=== PATIENT | male | born 1950 | race Caucasian/White ===

== ENCOUNTER 2021-10-30 06:58 | Emergency (ER) | payer OTHER ==
[~2021-10-30] VITALS: Ht 177.8 cm; Wt 79.4 kg
--- NOTE | ~2021-10-30 | EMS ---
[facility] [address] [place] [address] EMS Patient Care Report Name: DAVID CASTANO Room #: REG LUCIANO Canales#: [id number] Admission: 10/30/21 Attend Phys: Discharge: Date of : 48 Report #: [id number] THIS REPORT FOR: //name// Report Transmitted: 10/30/2021 09:11 EMS Care Summary [facility] MED-ACT Incident [id number] @ 10/30/2021 06:19 Incident [address] [place] [address] Patient DAVID CASTANO Male, 71 Years 1950 Patient Address [address] [place] [address] Patient History Hypertension (HTN),Polanco's-Palsy, Patient Allergies No known allergies, Patient Medications None Reported, Chief Complaint "My left side feels numb" Disposition Transported No Lights/Foley Dispatch Reason Stroke/CVA Transported To [facility] Narrative CC: "My left side feels numb, like its asleep" H: [id number] was dispatched to a C1 stoke at a residence. On arrival pt was laying on the bedroom floor AOx3 with ABCs intact. Pt reported he went to bed about [facility] [address] [place] [address] EMS Patient Care Report Name: DAVID CASTANO Room #: REG LUCIANO Canales#: [id number] Admission: 10/30/21 Attend Phys: Discharge: Date of : 48 Report #: [id number] 1am and was complaint free. He reported he got up to use the restroom and when he sat down he felt light headed and felt like his left arm and leg were asleep. He reported he could move everything, but he had to concentrate to do so. Pts vitals obtained and his blood pressure was high. He reported he knows it is high and has tried to take blood pressure medications in the past, but his blood pressure fluctuated too much so he stopped taking them. [place] stroke scale negative. Pts speech was slightly slurred but smile was symmetrical. 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 Pt reported both his brothers and father have had strokes and have since recovered. Pt denied headache, blurry or double vision, dizziness, nausea, vomiting, recent falls or trauma, new medications, fever, cough, shortness of breath or chest pain. Pt reported he laid on the floor because he did not want to wake up his , she recently had surgery secondary to breast cancer. Pt reported he is an active person and rides a bike daily. Pt denied stroke history. Pt assisted to his feet and he was able to walk, but reported it took much concentration. His gait was abnormal and he leaned to the left when trying to step down. Pt sat on the cot in the semi fowlers position, position of comfort. Pt reported he could feel EMS tough his left arm, leg, torso and face, however it felt "like a pressure when your arm falls asleep and you try and wake it up." Biocom to [place] without questions or orders. Pt reported he currently is not under the care of a physician. Assessment: See narrative and assessment tab for details. Treatment: bilateral blood pressures, blood glucose, stroke scale, 4 lead, 12 lead, surgical mask Transport: Pt conversed with EMS and moved his left arm and leg "trying to wake them up." vitals monitored and pt denied any new complaint. Destination: Pt transported to [facility] closest base facility and pts choice. Pt care to ED staff. Pt report to ED RN and MD. Pt moved from cot to bed via sheet drag. Pt left in ED care without incident or change. Initial Vitals @06:31P: 58,SpO2: 99,OR Suspected: false @06:52P: 73,R: 16,BP: 219/115,GCS: 15,SpO2: 99,Revised Trauma: 12, @06:46P: 62,R: 16,BP: 231/109,GCS: 15,SpO2: 99,Revised Trauma: 12, @06:29P: 57,R: 16,BP: 225/96,GCS: 15,SpO2: 97,Revised Trauma: 12, @06:29P: 58,R: 16,BP: 216/121,Pain: 0/10,GCS: 15,Temp: 98.2F,Glucose: 101,SpO2: 98,Revised Trauma: 12,OR Suspected: false Impression Stroke [facility] [address] [place] [address] EMS Patient Care Report Name: DAVID CASTANO Room #: REG LUCIANO Canales#: [id number] Admission: 10/30/21 Attend Phys: Discharge: Date of : 48 Report #: [id number] Procedures @06:44 IV Therapy - Saline Lock 10cc (18 ga) Site: Antecubital-Right Response: UnchangedFailed @06:45 Surgical Mask on Patient Response: Unchanged @06:45 IV Therapy - Saline Lock 10cc (20 ga) Site: Forearm-Right Response: UnchangedSucceeded @06:31 12-Lead ECG Response: UnchangedSucceeded Timeline 06:18,Call Received 06:18,Psap Call 06:19,Dispatched 06:21,En Route 06:25,On Scene 06:26,At Patient 06:29,BP: 216/121 M,PULSE: 58,RR: 16 R,SPO2: 98 Ox,ETCO2: ,B,PAIN: 0,GCS: 15, 06:29,BP: 225/96 M,PULSE: 57,RR: 16 R,SPO2: 97 Ox,ETCO2: ,BG: ,PAIN: ,GCS: 15, 06:31,12-Lead ECG,Response: UnchangedSucceeded, 06:31,BP: / M,PULSE: 58,RR: R,SPO2: 99 Ox,ETCO2: ,BG: ,PAIN: ,GCS: , 06:44,IV Therapy - Saline Lock 10cc 18 ga Site: Antecubital-Right,Response: UnchangedFailed, 06:45,IV Therapy - Saline Lock 10cc 20 ga Site: Forearm-Right,Response: UnchangedSucceeded, 06:45,Surgical Mask on Patient,Response: Unchanged 06:46,BP: 231/109 M,PULSE: 62,RR: 16 R,SPO2: 99 Ox,ETCO2: ,BG: ,PAIN: ,GCS: 15, 06:47,Depart Scene 06:52,BP: 219/115 M,PULSE: 73,RR: 16 R,SPO2: 99 Ox,ETCO2: ,BG: ,PAIN: ,GCS: 15, 06:56,At Destination 07:12,Call Closed Disclaimer v1.1 Copyright 2020 [employer] This EMS Care Summary contains data elements from the applicable legal record (which may be displayed differently). It is designed to provide pertinent information for the following purposes: continuity of care, clinical quality, and state data reporting. The complete legal record is available to ED staff and administrators of the receiving hospital in [facility]'s Patient Tracker. All data is provided "as is."
[2021-10-30 07:46] LABS: URINE CLARITY CLEAR; URINE COLOR YELLOW; URINE SPECIFIC GRAVITY 1.015 (1.005-1.035)
[2021-10-30 07:47] LABS: URINE BILIRUBIN NEGATIVE (Negative); URINE BLOOD NEGATIVE (Negative); URINE GLUCOSE-RANDOM* NEGATIVE (Negative); URINE KETONES NEGATIVE (Negative); URINE LEUKOCYTES-REFLEX NEGATIVE (Negative); URINE NITRITE-REFLEX NEGATIVE (Negative); URINE PROTEIN (DIPSTICK) NEGATIVE (Negative); URINE UROBILINOGEN 0.2 E.U./dl (0.2-1.0)
[2021-10-30 07:48] LABS: ABSOLUTE NEUTROPHILS 3.5 thou/uL (1.4-8.2); BASOPHILS 1.5 % (0.0-2.0); EOSINOPHILS 5.6 % (0.0-3.0); HEMATOCRIT 41.3 % (42.0-52.0); HEMOGLOBIN 13.5 gm/dL (14.0-18.0); LYMPHOCYTES 25.8 % (24.0-44.0); MCH 28.9 pg (26.0-34.0); MCHC 32.6 g/dL (28.0-37.0); MCV 88.6 fL (80.0-100.0); MONOCYTES 8.8 % (1.0-8.0); PLATELET COUNT 224 thou/uL (150-400); POLYS 58.3 % (36.0-66.0); RBC 4.66 mil/uL (4.50-6.00); RDW 12.9 % (10.5-14.5); WBC 5.9 thou/uL (4.0-11.0)
[2021-10-30 07:59] LABS: CALCIUM 8.3 mg/dL (8.5-10.1); CREATININE 1.1 mg/dL (0.7-1.3); POTASSIUM 4.4 mmol/L (3.5-5.1)
[2021-10-30 08:06] LABS: ALBUMIN 3.6 g/dL (3.4-5.0); TOTAL BILIRUBIN 0.4 mg/dL (0.2-1.0); TOTAL PROTEIN 7.1 g/dL (6.4-8.2)
[2021-10-30 09:18] LABS: APTT 28.5 Seconds (24.5-32.8); INR 1.04; PROTIME 11.3 Seconds (10.5-12.1)
[2021-10-30 10:11] VITALS: BP 141/67
--- NOTE | 2021-11-01 07:17 | EKG ---
[place] [address] [address] [place] [address] ELECTROCARDIOGRAM REPORT Name: DAVID CASTANO Room #: [facility]#: [id number] Admission: 10/30/21 Attend Phys: Discharge: 10/30/21 Date of : 48 Report #: [id number] [facility] ED Test Date: 2021-10-30 Test Time: 07:46:58 Pat Name: DAVID CASTANO Department: Room: Gender: Assembly Manager: CASSIDY : 1950 Requested By: Ricki Kendall Order Number: [id number] MD: Alvaro Flowers Measurements Intervals [place] Rate: 51 P: -15 [place]: 225 QRS: -12 QRSD: 118 T: 95 QT: 480 QTc: 443 Interpretive Statements Sinus rhythm Prolonged [place] interval Nonspecific intraventricular conduction delay Inferior infarct, old Lateral leads are also involved No previous ECG available for comparison Electronically Signed On 11-01-2021 7:17:03 EDUCATION AND DEVELOPMENT MANAGER by Alvaro Flowers [email or web address] <ELECTRONICALLY SIGNED> By: Alvaro Flowers MD, [facility] 11/01/21 0717 0746 [id number] Alvaro Flowers MD, FACC /EPI
== END 2021-10-30 10:12 | disposition short-term general hospital (02) ==
LOC: ER 06:58
PROVIDERS: Emergency Medicine
DX: I61.8 Other nontraumatic intracerebral hemorrhage (principal); Z20.822 Contact with and (suspected) exposure to COVID-19